=== PATIENT | female | born 1980 | race African-American/Black ===

== ENCOUNTER 2016-10-18 12:50 | Observation (INO) | payer OTHER ==
[2016-10-18 12:55] VITALS: BMI 47.2
--- NOTE | 2016-10-18 14:05 | PDOC ---
History of Present Illness - General Chief Complaint: Chest Pain Stated Complaint: CHEST PAIN Time Seen by Provider: 10/18/16 14:02 History Source: Patient Exam Limitations: No Limitations - History of Present Illness Initial Comments: 10/18/16 14:04 CHIEF COMPLAINT: Chest pain HISTORY OF PRESENT ILLNESS: This is a 35-year-old, obese female with a history of childhood asthma presents for evaluation of one week of intermittent chest pain. She reports that the pain occurs sometimes at rest and sometimes with exertion. She describes it as "being punched in the chest." Episodes have been occurring 2-3 times daily for about 1 week. They are associated with shortness of breath. She denies recent travel, trauma/surgery, OCP use, cigarette smoking , calf pain, and family/personal history of CAD or hypercoagulability. Vital signs on arrival are unremarkable. REVIEW OF SYSTEMS: GENERAL/CONSTITUTIONAL: No fever or chills. No weakness. No weight change. HEAD, EYES, EARS, NOSE AND THROAT: No change in vision. No ear pain or discharge. No sore throat. CARDIOVASCULAR: See HPI. RESPIRATORY: No cough or wheezing. Shortness of breath associated with chest pain episodes. GASTROINTESTINAL: No nausea, vomiting, diarrhea or constipation. GENITOURINARY: No dysuria, frequency, or change in urination. MUSCULOSKELETAL: No joint or muscle swelling or pain. No neck or back pain. SKIN: No rash or easy bruising. NEUROLOGIC: No headache, vertigo, loss of consciousness, or loss of sensation. PSYCHIATRIC: No depression or anxiety. ENDOCRINE: No increased thirst. No abnormal weight change. HEMATOLOGIC/LYMPHATIC: No anemia, easy bleeding, or history of blood clots. ALLERGIC/IMMUNOLOGIC: No hives or skin allergy. No latex allergy. PHYSICAL EXAM: GENERAL: The patient is awake, alert, and fully oriented, in no acute distress. HEAD: Normal with no signs of trauma. ENT: Pupils equal, round and reactive to light, extraocular movements intact, sclera anicteric, conjunctiva clear. Neck supple. LUNGS: Clear to auscultation bilaterally. Normal excursion. No respiratory distress or use of accessory muscles. Some pain reproducible with palpation. CV: RRR, S1/S2, no MRG. Cap refill < 2 sec. ABDOMEN: Soft, non-distended, non-tender. EXTREMITIES: Normal range of motion, no edema. Right calf tenderness. NEUROLOGICAL: Normal speech, normal gait. CN II-XII grossly intact. PSYCH: Normal mood, normal affect. SKIN: Warm, dry, normal turgor, no rashes or lesions noted. Past History - Past Medical History Allergies/Adverse Reactions: Allergies Allergy/AdvReac Type Severity Reaction Status Date / Time No Known Allergies Allergy Verified 10/18/16 12:51 Home Medications: Ambulatory Orders NK [No Known Home Medication] 10/18/16 Asthma: Yes - Psycho/Social/Smoking Cessation Hx Anxiety: No Suicidal Ideation: No Smoking History: Never smoked Have you smoked in the past 12 months: No Information on smoking cessation initiated: No Hx Alcohol Use: No Drug/Substance Use Hx: No Substance Use Type: None *Physical Exam - Vital Signs Last Vital Signs Temp Pulse Resp BP Pulse Ox 98.0 F 84 18 124/66 100 10/18/16 12:52 10/18/16 12:52 10/18/16 12:52 10/18/16 12:52 10/18/16 12:52 ED Treatment Course - LABORATORY CBC & Chemistry Diagram: 10/18/16 14:12 10/18/16 14:12 Medical Decision Making - Medical Decision Making 10/18/16 14:24 A/P: 35 year old obese female with one week of intermittent chest pain/SOB. 1. EKG 2. CXR 3. Cardiac labs + d-dimer 4. ASA 5. Re-assess 10/18/16 15:37 Troponin <0.02. 10/18/16 15:49 CXR: No active pulmonary disease. H/H 9.4/29.6. 10/18/16 16:34 Patient complaining of chest pain. Will send second troponin. D-dimer mildly elevated at 256; will obtain CTA. 10/18/16 18:20 CTA reviewed: no PE. Small focus of air seen within superior mediastinum abutting ventral wall of left barchiocephalic vein along the midline- may represent subtle finding of mediastinitis. This may be due to recent contrast injection, however question this given that IV site is on the right side. Patient is still having chest pain. Will request telemetry observation. *DC/Admit/Observation/Transfer Diagnosis at time of Disposition: Chest pain Qualifiers: Chest pain type: other chest pain Qualified Code(s): R07.89 - Other chest pain ; R07.8 - Other chest pain - Discharge Dispostion Condition at time of disposition: Guarded Admit: Yes
[2016-10-18 14:35] LABS: BASOPHIL 1.4 % (0-2.0); EOSINOPHIL 2.4 % (0-4.5); MCH 21.1 pg (25.7-33.7); MCHC 31.6 g/dl (32.0-36.0); MEAN CELL VOLUME 66.7 fl (80-96); NEUTROPHILS 62.3 % (42.8-82.8); PLATELET COUNT 430 K/MM3 (134-434); RDW 17.6 % (11.6-15.6)
[2016-10-18 14:56] LABS: ALBUMIN 3.4 g/dl (3.4-5.0); ANION GAP 6 (8-16); BILIRUBIN,TOTAL 0.3 mg/dL (0.2-1.0); CALCIUM 8.8 mg/dL (8.5-10.1); CO2 27 mmol/L (21-32); CREATININE 0.6 mg/dL (0.55-1.02); GLUCOSE,RANDOM 99 mg/dL (74-106); SGOT/AST 17 U/L (15-37); SGPT/ALT 22 U/L (12-78); TOT PROT 7.8 g/dl (6.4-8.2)
[2016-10-18 14:59] LABS: ALK PHOS 83 U/L (45-117); TROPONIN I < 0.02 ng/ml (0.00-0.05)
[2016-10-18 15:24] LABS: INR 1.25 (0.82-1.09); PROTHROMBIN TIME (PATIENT) 13.8 SEC (9.98-11.88)
[2016-10-18 15:33] LABS: ANISOCYTOSIS 1+; HYPOCHROMIA 1+; MICROCYTOSIS 1+; PLATELET ESTIMATE ADEQUATE (NORMAL)
[2016-10-18] MEDS ORDERED: ASPIRIN 81 MG CHEWABLE TABLETS PO ONE (15:36)
[2016-10-18] MEDS ORDERED: ASPIRIN 325 MG TABLET ONE (15:39)
[2016-10-18] MEDS ORDERED: ASPIRIN 81 MG CHEWABLE TABLETS ONE (15:40)
[2016-10-18 17:18] LABS: TROPONIN I < 0.02 ng/ml (0.00-0.05)
--- NOTE | 2016-10-18 21:31 | HP ---
Admitting History and Physical - Primary Care Physician PCP: Evan Muse - Admission Chief Complaint: chest pain History of Present Illness: 35-year-old, obese female with a history of childhood asthma presents for evaluation of one week of intermittent chest pain. She reports that the pain occurs sometimes at rest and sometimes with exertion. She describes it as " being punched in the chest." Episodes have been occurring 2-3 times daily for about 1 week. They are associated with shortness of breath. She denies recent travel, trauma/surgery. - Smoking History Smoking history: Never smoked Have you smoked in the past 12 months: No - Alcohol/Substance Use Hx Alcohol Use: No Home Medications - Allergies Allergies/Adverse Reactions: Allergies Allergy/AdvReac Type Severity Reaction Status Date / Time No Known Allergies Allergy Verified 10/18/16 12:51 - Home Medications Home Medications: Ambulatory Orders NK [No Known Home Medication] 10/18/16 Physical Examination Vital Signs: Vital Signs Temperature 98.3 F 10/18/16 20:18 Pulse Rate 90 10/18/16 20:18 Respiratory Rate 22 10/18/16 20:18 Blood Pressure 158/68 10/18/16 20:18 O2 Sat by Pulse Oximetry (%) 100 10/18/16 20:18 Constitutional: Yes: No Distress HENT: Yes: Atraumatic Neck: Yes: Supple Cardiovascular: Yes: Regular Rate and Rhythm Respiratory: Yes: CTA Bilaterally Gastrointestinal: Yes: Normal Bowel Sounds Extremities: Yes: WNL Edema: No Neurological: Yes: Alert, Oriented Problem List - Problems (1) Chest pain Assessment/Plan: tele admit serial cardiac enzymes cardiology consult Code(s): R07.9 - CHEST PAIN, UNSPECIFIED Qualifiers: Chest pain type: other chest pain Qualified Code(s): R07.89 - Other chest pain; R07.8 - Other chest pain Assessment/Plan Laboratory Results - last 24 hr 10/18/16 10/18/16 10/18/16 14:12 14:12 14:12 WBC 7.0 RBC 4.44 Hgb 9.4 L Hct 29.6 L MCV 66.7 L MCH 21.1 L MCHC 31.6 L RDW 17.6 H Plt Count 430 MPV 8.0 Neutrophils % 62.3 Lymphocytes % 26.2 Monocytes % 7.7 Eosinophils % 2.4 Basophils % 1.4 Platelet Estimate Adequate Hypochromic-Microcytic 1+ Anisocytosis 1+ Microcytosis 1+ INR 1.25 H D-Dimer 256 H Sodium 138 Potassium 3.5 Chloride 105 Carbon Dioxide 27 Anion Gap 6 L BUN 12 Creatinine 0.6 Creat Clearance w eGFR > 60 Random Glucose 99 Calcium 8.8 Total Bilirubin 0.3 AST 17 ALT 22 Alkaline Phosphatase 83 Creatine Kinase 70 Troponin I < 0.02 Total Protein 7.8 Albumin 3.4 Urine HCG, Qual 10/18/16 10/18/16 14:12 16:40 WBC RBC Hgb Hct MCV MCH MCHC RDW Plt Count MPV Neutrophils % Lymphocytes % Monocytes % Eosinophils % Basophils % Platelet Estimate Hypochromic-Microcytic Anisocytosis Microcytosis INR D-Dimer Sodium Potassium Chloride Carbon Dioxide Anion Gap BUN Creatinine Creat Clearance w eGFR Random Glucose Calcium Total Bilirubin AST ALT Alkaline Phosphatase Creatine Kinase 71 Troponin I < 0.02 Total Protein Albumin Urine HCG, Qual Negative
[2016-10-18] MEDS ORDERED: ACETAMINOPHEN 325 MG TABLET (FP) PO PRN (21:32)
--- NOTE | 2016-10-19 11:17 | CON.CARD ---
Consult Consult Specialty:: Cardiology Referred by:: Dr. Muse Reason for Consultation:: Cardiac evaluation - History of Present Illness Chief Complaint: Chest pain History of Present Illness: Patient is a 35 year old female with underlying history of bronchial asthma who presents with episodes of left sided sharp chest discomfort and feeling of heartbeat "dropping". She denies shortness of breath or palpitations. She denies paroxysmal nocturnal dyspnea or orthopnea. She denies fever or chills. She denies cough or expectorations. She denies headache or lightheadedness. She denies nausea, vomiting, diarrhea or abdominal pain. Cardiology consultation was called for further evaluation. - History Source History Provided By: Patient, Medical Record Limitations to Obtaining History: No Limitations - Past Medical History Pulmonary: Yes: Asthma - Past Surgical History Past Surgical History: Yes: - Alcohol/Substance Use Hx Alcohol Use: Yes (Social) History of Substance Use: reports: None - Smoking History Smoking history: Never smoked Have you smoked in the past 12 months: No Home Medications - Allergies Allergies/Adverse Reactions: Allergies Allergy/AdvReac Type Severity Reaction Status Date / Time No Known Allergies Allergy Verified 10/18/16 12:51 - Home Medications Home Medications: Ambulatory Orders NK [No Known Home Medication] 10/18/16 Family Disease History - Family Disease History Other Family History: History of malignancy Review of Systems - Review of Systems Constitutional: denies: Chills, Fever Cardiovascular: reports: Chest Pain. denies: Palpitations, Shortness of Breath Respiratory: denies: Cough, Hemoptysis, Orthopnea, PND, SOB, SOB on Exertion Gastrointestinal: denies: Abdominal Pain, Constipation, Diarrhea, Melena, Nausea , Rectal Bleeding, Vomiting Musculoskeletal: denies: Joint Pain Neurological: denies: Dizziness, Headache, Seizure, Syncope, Unsteady Gait, Weakness Vital Signs: Vital Signs Temperature 98.0 F 10/19/16 07:10 Pulse Rate 77 10/19/16 07:10 Respiratory Rate 16 10/19/16 07:10 Blood Pressure 110/52 10/19/16 07:10 O2 Sat by Pulse Oximetry (%) 100 10/18/16 22:00 HENT: Yes: Atraumatic Neck: Yes: Supple Respiratory: Yes: Regular, CTA Bilaterally Gastrointestinal: Yes: Normal Bowel Sounds, Soft. No: Tenderness Cardiovascular: Yes: Regular Rate and Rhythm JVD: No Carotid Bruit: No PMI: Non-Displaced Heart Sounds: Yes: S1, S2 Murmur: No: Systolic Murmur, Diastolic Murmur Edema: No - Other Data Labs, Other Data: INR, PTT INR 1.25 (0.82-1.09) H 10/18/16 14:12 Laboratory Results - last 24 hr 10/18/16 10/18/16 10/18/16 14:12 14:12 14:12 WBC 7.0 RBC 4.44 Hgb 9.4 L Hct 29.6 L MCV 66.7 L MCH 21.1 L MCHC 31.6 L RDW 17.6 H Plt Count 430 MPV 8.0 Neutrophils % 62.3 Lymphocytes % 26.2 Monocytes % 7.7 Eosinophils % 2.4 Basophils % 1.4 Platelet Estimate Adequate Hypochromic-Microcytic 1+ Anisocytosis 1+ Microcytosis 1+ INR 1.25 H D-Dimer 256 H Sodium 138 Potassium 3.5 Chloride 105 Carbon Dioxide 27 Anion Gap 6 L BUN 12 Creatinine 0.6 Creat Clearance w eGFR > 60 Random Glucose 99 Calcium 8.8 Total Bilirubin 0.3 AST 17 ALT 22 Alkaline Phosphatase 83 Creatine Kinase 70 Troponin I < 0.02 Total Protein 7.8 Albumin 3.4 Urine HCG, Qual Normal sinus rhythm with no ST-T abnormality Echo: Pending Imaging - Results Chest X-ray: Report Reviewed (Unremarkable) Cat Scan: Report Reviewed (Chest CTA no PTE) EKG: Report Reviewed Problem List - Problems (1) Chest pain Code(s): R07.9 - CHEST PAIN, UNSPECIFIED Qualifiers: Chest pain type: other chest pain Qualified Code(s): R07.89 - Other chest pain; R07.8 - Other chest pain (2) Bronchial asthma Code(s): J45.909 - UNSPECIFIED ASTHMA, UNCOMPLICATED Qualifiers: Asthma severity: mild intermittent Asthma complication type: uncomplicated Qualified Code(s): J45.20 - Mild intermittent asthma, uncomplicated Assessment/Plan 1. Chest pain syndrome - atypical 2. Bronchial asthma - uncomplicated 3. Exogenous obesity PLAN: 1. Serial cardiac enzymes are negative and there appears to be no evidence of pericardial disease 2. Transthoracic echocardiography to assess LV, pericardial and valvular function 3. No indication for any specific cardiac therapy at this time. Continue inhalers as needed 4. Consider exercise treadmill stress testing as outpatient 5. Check fasting lipid panel and TSH Further plans are to follow Trung Correia MD
[2016-10-19 14:23] VITALS: BP 124/70; PULSE 86; TEMP 98.2
--- NOTE | 2016-10-19 18:33 | DS ---
Physical Examination Vital Signs: Vital Signs Temperature 98.2 F 10/19/16 14:00 Pulse Rate 86 10/19/16 14:00 Respiratory Rate 20 10/19/16 14:00 Blood Pressure 124/70 10/19/16 14:00 O2 Sat by Pulse Oximetry (%) 100 10/19/16 13:00 Constitutional: Yes: No Distress HENT: Yes: Atraumatic Neck: Yes: Supple Cardiovascular: Yes: Regular Rate and Rhythm Respiratory: Yes: CTA Bilaterally Gastrointestinal: Yes: Normal Bowel Sounds Extremities: Yes: WNL Neurological: Yes: Alert, Oriented Discharge Summary Reason For Visit: MEDIASTINITIS; CHEST PAIN Current Active Problems Bronchial asthma (Acute) Chest pain (Acute) - Instructions Diet, Activity, Other Instructions: see cardiology as out pt for further work up Referrals: Trung Correia MD [Staff Physician] - Disposition: HOME - Home Medications Comprehensive Discharge Medication List: Ambulatory Orders NK [No Known Home Medication] 10/18/16 DC HOME FU PMD/CARDIO OUT PT
--- NOTE | 2016-10-20 13:02 | EKG ---
Test Reason : Blood Pressure : / mmHG Vent. Rate : 083 BPM Atrial Rate : 083 BPM P-R Int : 156 ms QRS Dur : 084 ms QT Int : 388 ms P-R-T Axes : 028 016 011 degrees QTc Int : 455 ms NORMAL SINUS RHYTHM NORMAL ECG NO PREVIOUS ECGS AVAILABLE Confirmed by EARNESTINE CHIU, ANNE ([id number]) on 10/20/2016 1:02:21 PM Referred By: Confirmed By:ANNE COLBY MD
== END 2016-10-19 16:45 | disposition home or self-care (01) ==
LOC: JERFT 12:50 → JER 12:50 → JERBED 18:29 → J4W 22:45
PROVIDERS: ADMIT Internal Medicine; ATTEND Internal Medicine
DX: R07.89 Other chest pain (principal); J45.20 Mild intermittent asthma, uncomplicated; E66.09 Other obesity due to excess calories; Z68.42 Body mass index [BMI] 45.0-49.9, adult
CPT/HCPCS: 36415; 71020-TC; 71275-TC; 80053; 82550; 84484; 84703; 85025; 85379; 85610; 93005; 93010; 93306-TC; 99282-25; G0378

== ENCOUNTER 2017-07-12 06:09 | Day surgery (SDC) | payer OTHER ==
[2017-07-11 09:54] VITALS: BMI 44.3
--- NOTE | 2017-07-12 07:26 | HP ---
History & Physical Update - History History: No Change - Physical Physical: No Change - Assessment Assessment: No Change - Plan Plan: No Change (No changes since 06/20/17 consent signed and witnessed)
[2017-07-12] MEDS ORDERED: ROCURONIUM BROMIDE 50 MG/5 ML VIAL ONE (07:28)
[2017-07-12] MEDS ORDERED: PROPOFOL 20 ML ONE (07:28)
[2017-07-12] MEDS ORDERED: SUCCINYLCHOLINE CHLORIDE 200 MG/10 ML VIAL ONE (07:28)
[2017-07-12] MEDS ORDERED: DEXAMETHASONE SOD PHOSPHATE 4 MG/1 ML VIAL ONE (07:28)
[2017-07-12] MEDS ORDERED: MIDAZOLAM HCL 2 MG/2 ML SINGLE DOSE VIAL ONE (07:31)
[2017-07-12] MEDS ORDERED: fentaNYL CITRATE 250 MCG/5 ML VIAL ONE (07:33)
[2017-07-12] MEDS ORDERED: IBUPROFEN 600 MG TABLET (FP) PO PRN (07:42)
[2017-07-12] MEDS ORDERED: oxyCODONE HCL 5 MG TABLET PO PRN ×2 (07:42→10:14)
[2017-07-12] MEDS ORDERED: ONDANSETRON 4 MG/2 ML VIAL IVPUSH PRN ×2 (07:42→10:14)
[2017-07-12] MEDS ORDERED: IBUPROFEN 800 MG/8 ML IJ IVPB PRN (07:42)
[2017-07-12] MEDS ORDERED: ELECTROLYTE-148 SOLN 1,000 ML IV SCH (07:45)
--- NOTE | 2017-07-12 07:45 | OP ---
Operative Note - Note: Operative Date: 07/12/17 Pre-Operative Diagnosis: 36yo P3 with morbid obesity, heavy menses and sever anemia Operation: Hysteroscopy, Polypectomy, D&C, Endometrial ablation Findings: 10 week uterus, very long vagina with moderate Rectocele not visible cervix, very anterior Lower uterine segment polyp, visualized and removed hysteroscopicaly No uterine lesions Successful HTA cycle Post-Operative Diagnosis: Same as Pre-op Surgeon: Sara Acuña Anesthesiologist/CASE PREPARER AND LINER: Sanjay Moss Anesthesia: MAC Estimated Blood Loss (mls): 0 Instrument used (Debridements only): long Vaginal hysterectomy set retractors Drains & Tubes with Location: Fluid defficit 100cc Drains, Volume Out (mls): 20 Fluid Volume Replaced (mls): 500 Operative Report Dictated: Yes
[2017-07-12] MEDS ORDERED: IBUPROFEN 800 MG/8 ML IJ IVPB ONE (09:48)
[2017-07-12] MEDS ORDERED: LACTATED RINGERS SOLUTION 1,000 ML IV SCH (10:15)
[2017-07-12 10:53] VITALS: TEMP 97.8
[2017-07-12 13:42] VITALS: BP 122/73; PULSE 90
--- NOTE | 2017-07-13 13:24 | OP ---
DATE OF OPERATION: 07/12/2017 PREOPERATIVE DIAGNOSIS: A 36-year-old para 3 with morbid obesity, heavy menses, severe anemia, and three prior sections. OPERATION: Hysteroscopy, polypectomy, dilation and curettage, endometrial ablation. FINDINGS: A 10-week uterus, very long vagina with moderate rectocele. No visible cervix. Very anterior in position. Lower uterine segment polyp visualized and removed hysteroscopically. No uterine lesions visualized. Successful hydrothermal ablation cycle. POSTOPERATIVE DIAGNOSIS: A 10-week uterus, very long vagina with moderate rectocele. No visible cervix. Very anterior in position. Lower uterine segment polyp visualized and removed hysteroscopically. No uterine lesions visualized. Successful hydrothermal ablation cycle. SURGEON: Sara Acuña MD ANESTHESIOLOGIST: Sanjay Moss MD ANESTHESIA: MAC DESCRIPTION OF OPERATIVE PROCEDURE: After ensuring informed consent and discussing the risks, benefits, and alternatives to the procedure, the patient was brought to the operating room, placed in the dorsal lithotomy position, and anesthesia was administered. The patient was examined with the above findings. After prepping and draping perineum and vagina, bladder was drained sterilely. The 5-mm hysteroscope was primed, white balanced, and assembled. The vagina was retracted with regular retractors; however, it was impossible to visualize the cervix, so vaginal hysterectomy set retractors was requested and used to visualize the cervical opening. The cervix was found to be flush with the vagina and extremely difficult to identify. Additional retraction was needed in order to prevent any injury. The very flat anterior cervical lip was finally articulated with single-toothed tenaculum and cervix was easily navigated with dilators, accommodating gauge 19 without any difficulty. The hysteroscope was introduced into the uterus and cervix was found to have difficulty maintaining the cervical seal. A lot of fluid regression was noted and lost on the drapes and floor. However, uterine cavity was visualized with the above findings. No significant lesions. The cavity was curetted with TruClear device to obtain proper endometrial sampling. Subsequently the [place] compatable hysteroscope was assembled and also introduced through the cervix into the uterus. Excellent seal was achieved and full Hydrothermablation cycle was performed for 10 minutes. Prior to completing the cycle, patient woke up and moved, squeezing the fluid from the uterus. Two 4 x 4s sponges were in the vagina and all fluid was noted to be absorbed, all vaginal so were intact, without any signs of thermal damage. The cycle was completed and cool cycle was completed as well. All instruments and sponges were removed from the vagina. Instrument and sponge counts were correct x2. Estimated blood loss was zero. Fluid deficit was 100 mL. Urine output was 20 mL. Patient received 500 mL of IV fluids. Successful, but extra complicated and time consuming procedure was performed; It was definitively exceeding regular level of difficulty due to prior sections and morbid obesity. Patient was brought to the recovery room in stable condition. Mario [id number] MTDBret
--- NOTE | 2017-07-13 15:08 | PATH ---
Surgical Pathology Report Patient Name: HALLE DUTTON Med. Rec. #: [id number] /Age/Gender: 1980 (Age: 36) / F Account: [id number] Location: [facility] SURGICAL Taken: 07/12/2017 Received: 07/12/2017 Reported: 07/13/2017 Physicians: Sara Acuña M.D. Specimen(s) Received ENDOMETRIAL SHAVINGS Clinical History Menorrhagia, anemia Final Diagnosis ENDOMETRIUM, CURETTING: ENDOMETRIUM WITH STROMAL AND GLANDULAR BREAKDOWN, WITH FOCAL AREAS SUGGESTIVE OF ENDOMETRIAL POLYP. Comment: Recommend correlation with clinical findings and follow up as clinically indicated. Electronically Signed Milo Castillo M.D. Gross Description Received in formalin labeled "endometrial shavings," is a 1.7 x 1.7 x 0.2 cm aggregate of addison brown fragments of soft tissue admixed with blood clot. The formalin is filtered and the specimen is entirely submitted in one cassette. /07/12/2017 [facility]07/12/2017
== END 2017-07-12 14:00 | disposition home or self-care (01) ==
LOC: JASU-SURG 06:09
PROVIDERS: ATTEND Obstetrics & Gynecology
PROC: 0UDB7ZX Extraction of Endometrium, Via Natural or Artificial Opening, Diagnostic (ICD-10-PCS; 2017-07-12)
PROC: 0U5B8ZZ Destruction of Endometrium, Via Natural or Artificial Opening Endoscopic (ICD-10-PCS; principal; 2017-07-12 07:30)
PROC: 0UDB7ZX Extraction of Endometrium, Via Natural or Artificial Opening, Diagnostic (ICD-10-PCS; 2017-07-12 07:30)
PROC: 0UB98ZX Excision of Uterus, Via Natural or Artificial Opening Endoscopic, Diagnostic (ICD-10-PCS; 2017-07-12 07:30)
DX: N93.8 Other specified abnormal uterine and vaginal bleeding (principal); D64.9 Anemia, unspecified; E66.01 Morbid (severe) obesity due to excess calories; N84.0 Polyp of corpus uteri
CPT/HCPCS: 84703; 88305-TC; 94760

== ENCOUNTER 2017-11-17 17:01 | Emergency (ER) | payer OTHER ==
[2017-11-17 17:15] VITALS: BMI 41.3
[2017-11-17] MEDS ORDERED: FAMOTIDINE 20 MG/50 ML IVPB 20 MG/50 ML MG IVPB ONE ×2 (17:19→17:35)
[2017-11-17] MEDS ORDERED: methylPREDNISolone NA SUCC 125 MG/2 ML VIAL IVPB ONE (17:19)
[2017-11-17] MEDS ORDERED: SODIUM CHLORIDE 1,000 ML IV STA (17:19)
[2017-11-17] MEDS ORDERED: ALBUTEROL SO4 0.083% IH SOL 2.5 MG/3 ML VIAL.NEB. NEB ONE ×2 (17:19→17:36)
[2017-11-17] MEDS ORDERED: methylPREDNISolone NA SUCC 125 MG/2 ML VIAL ONE (17:35)
--- NOTE | 2017-11-17 17:53 | PDOC ---
History of Present Illness - General History Source: Patient, EMS Exam Limitations: No Limitations - History of Present Illness Initial Comments: 11/17/17 18:53 The patient is a 36 year old female, with a significant PMH of asthma, who presents to the emergency department from home via EMS with lip/ tongue swelling and shortness of breath. The patient states today for the first time she tried having soy milk as part of her stage 2 gastric sleeve diet. The patient states she began having the allergic rxn s/p having the soy milk. The patient reports receiving decadron and benadryl from EMS with relief from her symptoms. The patient denies chest pain, palpitations, headache and dizziness. Denies fever, chills, nausea, vomit, diarrhea and constipation. Denies dysuria, frequency, urgency and hematuria. Allergies: NKDA <Daniel Noe - Last Filed: 11/17/17 18:53> <Chikis Staples - Last Filed: 11/17/17 20:01> - General Chief Complaint: Allergic Reaction Stated Complaint: ALLERGIC REACTION Time Seen by Provider: 11/17/17 17:22 Past History <Daniel Noe - Last Filed: 11/17/17 18:53> - Past Medical History Anemia: Yes Asthma: Yes Cancer: No Cardiac Disorders: No CVA: No COPD: No CHF: No Dementia: No Diabetes: No GI Disorders: No Disorders: No HTN: No Hypercholesterolemia: No Liver Disease: No Seizures: No Thyroid Disease: No - Surgical History Abdominal Surgery: No Appendectomy: No Cardiac Surgery: No Cholecystectomy: No GI Surgery: Yes (sleeve) Lung Surgery: No Neurologic Surgery: No Orthopedic Surgery: No - Suicide/Smoking/Psychosocial Hx Smoking History: Never smoked Have you smoked in the past 12 months: No Information on smoking cessation initiated: No Hx Alcohol Use: No Drug/Substance Use Hx: No Substance Use Type: Alcohol Hx Substance Use Treatment: No <Chikis Staples - Last Filed: 11/17/17 20:01> - Past Medical History Allergies/Adverse Reactions: Allergies Allergy/AdvReac Type Severity Reaction Status Date / Time No Known Drug Allergies Allergy Verified 07/11/17 10:15 Home Medications: Ambulatory Orders Albuterol Sulfate Inhaler - [Ventolin Hfa Inhaler -] 1 puff IH PRN PRN 07/11/17 EPINEPHrine (EPI-PEN 0.3MG) [Epipen 0.3MG -] 0.3 mg IM ASDIR #2 pens 11/17/17 Famotidine [Pepcid -] 20 mg PO DAILY #7 tablet 11/17/17 predniSONE [Deltasone -] 40 mg PO DAILY #8 tablet 11/17/17 Review of Systems - Review of Systems Comments:: 11/17/17 18:54 GENERAL/CONSTITUTIONAL: No fever or chills. No weakness. HEAD, EYES, EARS, NOSE AND THROAT: +Lip and tongue swelling (resolved). No change in vision. No ear pain or discharge. No sore throat. CARDIOVASCULAR: +Shortness of breath (resolved). No chest pain. RESPIRATORY: No cough, wheezing, or hemoptysis. GASTROINTESTINAL: No nausea, vomiting, diarrhea or constipation. GENITOURINARY: No dysuria, frequency, or change in urination. MUSCULOSKELETAL: No joint or muscle swelling or pain. No neck or back pain. SKIN: No rash NEUROLOGIC: No headache, vertigo, loss of consciousness, or change in strength/ sensation. ENDOCRINE: No increased thirst. No abnormal weight change. HEMATOLOGIC/LYMPHATIC: No anemia, easy bleeding, or history of blood clots. ALLERGIC/IMMUNOLOGIC: No hives or skin allergy. <Daniel Noe - Last Filed: 11/17/17 18:53> *Physical Exam - Vital Signs Last Vital Signs Temp Pulse Resp BP Pulse Ox 97.8 F 70 16 124/58 98 11/17/17 18:25 11/17/17 18:25 11/17/17 18:25 11/17/17 18:25 11/17/17 18:25 - Physical Exam Comments: 11/17/17 18:57 GENERAL: Awake, alert, and fully oriented, in no acute distress HEAD: No signs of trauma EYES: PERRLA, EOMI, sclera anicteric, conjunctiva clear ENT: No lip or tongue swelling. Auricles normal inspection, hearing grossly normal, nares patent, oropharynx clear without exudates. Moist mucosa NECK: Normal ROM, supple, no lymphadenopathy, JVD, or masses LUNGS:Breath sounds equal, clear to auscultation bilaterally. No wheezes, and no crackles. Speaking in clear sentences. No evidence of respiratory distress. No stridor. HEART: Regular rate and rhythm, normal S1 and S2, no murmurs, rubs or gallops ABDOMEN: Incisions are well healing, one has dermabond in place. Soft, nontender , normoactive bowel sounds. No guarding, no rebound. No masses EXTREMITIES: Normal range of motion, no edema. No clubbing or cyanosis. No cords, erythema, or tenderness NEUROLOGICAL: Cranial nerves II through XII grossly intact. Normal speech, normal gait SKIN: Warm, Dry, normal turgor, no rashes or lesions noted. <Daniel Noe - Last Filed: 11/17/17 18:53> - Vital Signs Last Vital Signs Temp Pulse Resp BP Pulse Ox 98.4 F 65 18 112/72 100 11/17/17 17:04 11/17/17 17:04 11/17/17 17:04 11/17/17 17:04 11/17/17 17:04 <Chikis Staples - Last Filed: 11/17/17 20:01> ED Treatment Course - LABORATORY CBC & Chemistry Diagram: 11/17/17 17:40 11/17/17 17:40 - ADDITIONAL ORDERS Additional order review: Laboratory Results 11/17/17 17:40 Sodium 144 Potassium 2.9 L* Chloride 106 Carbon Dioxide 26 Anion Gap 12 BUN 10 Creatinine 0.6 Creat Clearance w eGFR > 60 Random Glucose 90 Calcium 8.6 11/17/17 17:40 RBC 4.73 MCV 88.6 MCHC 33.7 RDW 15.4 D MPV 10.0 D Neutrophils % 66.2 Lymphocytes % 22.4 Monocytes % 7.8 Eosinophils % 2.8 Basophils % 0.8 - Medications Given in the ED: ED Medications Discontinued Medications Generic Name Dose Route Start Last Admin Trade Name Freq PRN Reason Stop Dose Admin Albuterol Sulfate 1 amp 11/17/17 17:19 11/17/17 17:33 Ventolin 0.083% Nebulizer Soln - NEB 11/17/17 17:20 1 amp ONCE ONE Administration Diphenhydramine HCl 50 mg 11/17/17 17:18 11/17/17 17:33 Benadryl Injection - IVPUSH 11/17/17 17:19 50 mg ONCE ONE Administration Famotidine/Sodium Chloride 20 mg in 50 mls @ 100 mls/hr 11/17/17 17:19 17:33 Pepcid 20 Mg Premixed Ivpb - IVPB 11/17/17 17:48 100 mls/hr ONCE ONE Administration Sodium Chloride 1,000 mls @ 1,000 mls/hr 11/17/17 17:19 11/17/17 17:33 Normal Saline - IV 11/17/17 18:18 1,000 mls/hr ASDIR STA Administration Methylprednisolone Sodium Succinate 125 mg 11/17/17 17:19 11/17/17 17:33 Solu-Medrol - IVPB 11/17/17 17:20 125 mg ONCE ONE Administration Potassium Chloride 40 meq 11/17/17 18:30 11/17/17 18:45 Potassium Chloride Oral Liquid PO 11/17/17 18:31 40 meq ONCE ONE Administration <Daniel Noe - Last Filed: 11/17/17 18:53> - LABORATORY CBC & Chemistry Diagram: 11/17/17 17:40 11/17/17 17:40 - Medications Given in the ED: ED Medications Discontinued Medications Generic Name Dose Route Start Last Admin Trade Name Yovaniq PRN Reason Stop Dose Admin Albuterol Sulfate 1 amp 11/17/17 17:19 11/17/17 17:33 Ventolin 0.083% Nebulizer Soln - NEB 11/17/17 17:20 1 amp ONCE ONE Administration Diphenhydramine HCl 50 mg 11/17/17 17:18 11/17/17 17:33 Benadryl Injection - IVPUSH 11/17/17 17:19 50 mg ONCE ONE Administration Famotidine/Sodium Chloride 20 mg in 50 mls @ 100 mls/hr 11/17/17 17:19 17:33 Pepcid 20 Mg Premixed Ivpb - IVPB 11/17/17 17:48 100 mls/hr ONCE ONE Administration Methylprednisolone Sodium Succinate 125 mg 11/17/17 17:19 11/17/17 17:33 Solu-Medrol - IVPB 11/17/17 17:20 125 mg ONCE ONE Administration <Chikis Staples - Last Filed: 11/17/17 20:01> Medical Decision Making - Medical Decision Making 11/17/17 17:54 a/p: 36yo female with acute allergic reaction to soy milk -stage 2 from bariatric surgery -added protein in and drank soy milk for the first time -pt with acute onset of lip swelling and tongue swelling, itching in throat, upset stomach -no hives -hx of similar reaction to kiwi in the past -given benadryl and decadron [employer] -upon arrival given meds for allergic reaction -feeling better at this time -no acute distress at this time -no stridor or wheezing -mild abd cramping -no longer itching or swelling -will monitor and reassess 11/17/17 19:52 re-eval: pt feeling much better discussed follow up with allergy discussed outpt steroids and pepcid discussed all reasons to return to the ED and need for follow up discussed avoiding soy answered all questions stable for d/c to home <Chikis Staples - Last Filed: 11/17/17 20:01> *DC/Admit/Observation/Transfer - Attestations Scribe Attestion: 11/17/17 18:58 Documentation prepared by Daniel Noe, acting as medical technologist microbiology for Chikis Staples DO. <Daniel Noe - Last Filed: 11/17/17 18:53> - Discharge Dispostion Decision to Admit order: No - Attestations Physician Attestion: 11/17/17 20:01 I, Dr. Chikis Staples DO, attest that this document has been prepared under my direction and personally reviewed by me in its entirety. I further attest, that it accurately reflects all work, treatment, procedures and medical decision -making performed by me. <Chikis Staples - Last Filed: 11/17/17 20:01> Diagnosis at time of Disposition: Allergic reaction - Discharge Dispostion Disposition: HOME Condition at time of disposition: Stable - Prescriptions Prescriptions: EPINEPHrine (EPI-PEN 0.3MG) [Epipen 0.3MG -] 0.3 mg IM ASDIR #2 pens Famotidine [Pepcid -] 20 mg PO DAILY #7 tablet predniSONE [Deltasone -] 40 mg PO DAILY #8 tablet - Referrals Referrals: Brendon Rinaldi MD [Primary Care Provider] - Jame Syed MD [Staff Physician] - - Patient Instructions Printed Discharge Instructions: DI for Adverse Drug Reaction -- Allergic Additional Instructions: Please take all medications as prescribed. Please follow up with the director of employer services and your pmd. Please follow up with your surgeon as scheduled. Please return to the ED with any further concerns or complaints. - Post Discharge Activity
[2017-11-17 18:01] LABS: BASO % 0.8 % (0-2.0); EOS % 2.8 % (0-4.5); HEMATOCRIT 41.8 % (32.4-45.2); HEMOGLOBIN 14.1 GM/dL (10.7-15.3); LYMPH % 22.4 % (8-40); MCH 29.8 pg (25.7-33.7); MCHC 33.7 g/dl (32.0-36.0); MEAN CELL VOLUME 88.6 fl (80-96); MONO % 7.8 % (3.8-10.2); NEUT % 66.2 % (42.8-82.8); PLATELET COUNT 220 K/MM3 (134-434); RBC 4.73 M/mm3 (3.60-5.2); RDW 15.4 % (11.6-15.6); WHITE BLOOD COUNT 4.9 K/mm3 (4.0-10.0)
[2017-11-17 18:25] VITALS: BP 124/58; PULSE 70; TEMP 97.8
[2017-11-17 18:28] LABS: ANION GAP 12 (8-16); BLOOD UREA NITROGEN 10 mg/dL (7-18); CALCIUM 8.6 mg/dL (8.5-10.1); CHLORIDE 106 mmol/L (98-107); CO2 26 mmol/L (21-32); CREATININE 0.6 mg/dL (0.55-1.02); GLUCOSE,RANDOM 90 mg/dL (74-106); SODIUM 144 mmol/L (136-145)
[2017-11-17 18:29] LABS: POTASSIUM 2.9 mmol/L (3.5-5.1)
[2017-11-17] MEDS ORDERED: POTASSIUM CHLORIDE ORAL LIQUID 20 MEQ/15 ML PO ONE (18:30)
[2017-11-17] MEDS ORDERED: POTASSIUM CHLORIDE ORAL LIQUID 20 MEQ/15 ML ONE (18:48)
== END 2017-11-17 20:32 | disposition home or self-care (01) ==
LOC: JER 17:01
PROC: 3E033GC Introduction of Other Therapeutic Substance into Peripheral Vein, Percutaneous Approach (ICD-10-PCS; principal; 2017-11-17)
PROC: 3E0337Z Introduction of Electrolytic and Water Balance Substance into Peripheral Vein, Percutaneous Approach (ICD-10-PCS; 2017-11-17)
PROC: 3E0F7GC Introduction of Other Therapeutic Substance into Respiratory Tract, Via Natural or Artificial Opening (ICD-10-PCS; 2017-11-17)
DX: T78.40XA Allergy, unspecified, initial encounter (principal); X58.XXXA Exposure to other specified factors, initial encounter; D64.9 Anemia, unspecified; J45.909 Unspecified asthma, uncomplicated; Z98.84 Bariatric surgery status
CPT/HCPCS: 36415; 80048; 85025; 99284-25; J7030